=== PATIENT | female | born 1990 | race Caucasian/White ===

== ENCOUNTER 2017-05-11 05:10 | Inpatient (IN) | payer BC ==
[~2017-05-11] VITALS: Ht 160 cm; Wt 70.0 kg
[2017-05-11] MEDS ORDERED: OXYTOCIN 30U/ 0.9% NaCL 500ML 500 ML IV ONE (05:42)
[2017-05-11] MEDS ORDERED: OXYTOCIN 30U/ 0.9% NaCL 500ML 500 ML IV PRN (05:42)
[2017-05-11 05:49] VITALS: BP 145/88
[2017-05-11] MEDS ORDERED: ALUMINUM/MAG/SIMETHICONE 30 ML UDC PO PRN (06:00)
[2017-05-11] MEDS ORDERED: METOCLOPRAMIDE 5 MG/ML, 2ML IVPush PRN (06:00)
[2017-05-11] MEDS ORDERED: FENTANYL PF 100 MCG/2ML IV PRN (06:00)
[2017-05-11] MEDS ORDERED: SODIUM CHLORIDE FLUSH 10ML SYR IVF PRN (06:00)
[2017-05-11] MEDS ORDERED: TERBUTALINE 1 MG/ML, 1ML IVPush PRN (06:00)
[2017-05-11] MEDS ORDERED: TERBUTALINE 1 MG/ML, 1ML SQ PRN (06:00)
[2017-05-11] MEDS ORDERED: ONDANSETRON 2MG/ML, 2ML IVPush PRN (06:00)
[2017-05-11] MEDS ORDERED: SODIUM CITRATE/CITRIC ACID 30 ML UDC PO PRN (06:00)
[2017-05-11] MEDS ORDERED: FENTANYL PF 100 MCG/2ML IVPush PRN (06:00)
[2017-05-11] MEDS ORDERED: CALCIUM CARBONATE 500 MG TAB.CHEW PO PRN (06:00)
[2017-05-11] MEDS: D5%-LACTATED RINGERS 1,000 ML IV SCH ×2 (06:37→13:42)
[2017-05-11] MEDS ORDERED: MISOPROSTOL 200 MCG TABLET ONE (08:12)
[2017-05-11] MEDS: LACTATED RINGERS 1,000 ML IV SCH ×2 (09:14→11:21)
[2017-05-11] MEDS ORDERED: FENTANYL/BUPIV./NS/PF 250 ML EPIDCONT ONE (09:36)
[2017-05-11] MEDS ORDERED: LIDOCAINE/PF 1.5%-EPI 1:200K, 30ML ONE ×2 (09:36→09:38)
[2017-05-11] MEDS ORDERED: BUPIVACAINE/PF 0.25% ONE (09:37)
[2017-05-11] MEDS ORDERED: BUPIVACAINE 0.25% ONE (09:38)
[2017-05-11] MEDS ORDERED: LIDOCAINE 1%, 20ML ONE (09:38)
[2017-05-11] MEDS ORDERED: FENTANYL PF 100 MCG/2ML ONE (11:31)
[2017-05-11] MEDS ORDERED: OXYTOCIN 30U/ 0.9% NaCL 500ML 500 ML IV SCH (12:21)
[2017-05-11] MEDS ORDERED: ONDANSETRON 2MG/ML, 2ML IV PRN (12:30)
[2017-05-11] MEDS ORDERED: IBUPROFEN 800 MG TABLET PO PRN (12:30)
[2017-05-11] MEDS ORDERED: PLEASE ENTER ALLERGIES MC SCH ×2 (12:30)
[2017-05-11] MEDS ORDERED: OXYcodone/APAP 5/325MG TABLET PO PRN ×2 (12:30)
[2017-05-11] MEDS ORDERED: DOCUSATE 100 MG CAPSULE PO PRN (12:30)
[2017-05-11] MEDS ORDERED: ACETAMINOPHEN 325 MG TABLET PO PRN (12:30)
[2017-05-11] MEDS ORDERED: MISOPROSTOL 200 MCG TABLET PR PRN (12:30)
[2017-05-11] MEDS ORDERED: IBUPROFEN 600 MG TABLET ONE (12:36)
[2017-05-11] MEDS ORDERED: FENTANYL/BUPIV./NS/PF 250 ML EPIDCONT SCH (12:43)
[2017-05-11] MEDS ORDERED: LACTATED RINGERS 1,000 ML IV SCH (12:43)
[2017-05-11] MEDS ORDERED: LACTATED RINGERS 1,000 ML IVBOLUS PRN (13:00)
[2017-05-11] MEDS: IBUPROFEN 200 MG TABLET PO PRN (13:36)
[2017-05-11 14:35] VITALS: BP 140/95
[2017-05-11] MEDS ORDERED: DIPH,PERTUSS(ACELL),TET VAC/PF NC IM-VACC ONE ×2 (15:30→20:39)
[2017-05-11 20:15] VITALS: BP 125/76
[2017-05-12 00:10] VITALS: BP 134/89
[2017-05-12] MEDS: IBUPROFEN 200 MG TABLET PO PRN ×2 (00:18→06:21)
[2017-05-12 05:05] VITALS: BP 128/85
[2017-05-12 07:05] VITALS: BP 120/84
[2017-05-12] MEDS ORDERED: PRENATAL VIT/IRON/FA 1 EACH TABLET PO SCH (09:00)
[2017-05-12] MEDS ORDERED: IBUP800T PO (11:54)
[2017-05-12] MEDS ORDERED: OXYC-302 PO (11:54)
== END 2017-05-12 17:45 | disposition home or self-care (01) | DRG 775 ==
LOC: LDIP 05:10 → 2NW 14:25
PROVIDERS: ADMIT Obstetrics & Gynecology; ATTEND Obstetrics & Gynecology
PROC: 10E0XZZ Delivery of Products of Conception, External Approach (ICD-10-PCS; principal; 2017-05-11)
PROC: 10907ZC Drainage of Amniotic Fluid, Therapeutic from Products of Conception, Via Natural or Artificial Opening (ICD-10-PCS; 2017-05-11)
PROC: 3E033VJ Introduction of Other Hormone into Peripheral Vein, Percutaneous Approach (ICD-10-PCS; 2017-05-11)
PROC: 00HU33Z Insertion of Infusion Device into Spinal Canal, Percutaneous Approach (ICD-10-PCS; 2017-05-11)
PROC: 3E0R3CZ (ICD-10-PCS; 2017-05-11)
DX: O69.81X0 Labor and delivery complicated by cord around neck, without compression, not applicable or unspecified (principal); Z3A.39 39 weeks gestation of pregnancy; Z37.0 Single live birth
CPT/HCPCS: 36415; 82803; 85025; 86850; 86900; 90715; J3490; J2590; J3010; J7120; J7121